=== PATIENT | female | born 2000 | race Two or more races ===

== ENCOUNTER 2022-02-01 19:43 | Emergency (ER) | payer OTHER ==
[2022-02-01 21:56] LABS: Bilirubin Negative (Negative); Blood, Urine Negative (Negative); Clarity Clear (Clear); Glucose, Urine (Dipstick) Normal (Negative); Ketone, Urine Negative (Negative); Leukocyte 75 Leu/uL (Negative); Mucous/LPF Rare LPF (<2+); Nitrite Negative (Negative); Protein, Urine (Dipstick) Negative (Neg-Trace); RBC/HPF 0-3 HPF (0-3); Squamous Epithelial 0-3 HPF (0-3); Urobilinogen Normal mg/dL (Less than 2); WBC/HPF 0-3 HPF (0-3); pH, Urine 6.5 (5.0-9.0)
[2022-02-01 21:59] LABS: Bacteria/HPF 1+ HPF (None Seen)
[2022-02-02 15:14] LABS: Chlam.trachomatis by PCR,Urine Not Detected (NotDetected)
== END 2022-02-01 20:58 | disposition home or self-care (01) ==
LOC: ERS 19:43
DX: O36.8120 Decreased fetal movements, second trimester, not applicable or unspecified (principal); Z3A.26 26 weeks gestation of pregnancy
CPT/HCPCS: 81003; 81015; 87491; 87591; 99284